=== PATIENT | male | born 1975 | race Caucasian/White ===

== ENCOUNTER 2017-05-12 09:01 | Outpatient (CLI) | payer MEDICARE, MEDICAID ==
[2017-05-12 19:00] LABS: BASOPHILS # (AUTO) 0.1 10^3/uL (0.0-0.1); BASOPHILS % (AUTO) 0.9 %; EOSINOPHILS # (AUTO) 0.1 10^3/uL (0.0-0.7); EOSINOPHILS % (AUTO) 1.8 %; HCT - HEMATOCRIT 48.8 % (42.0-52.0); HGB - HEMOGLOBIN 16.6 g/dL (14.0-18.0); LYMPHOCYTES # (AUTO) 1.7 10^3/uL (1.5-3.5); LYMPHOCYTES % (AUTO) 26.2 %; MEAN CORPUSCULAR HEMOGLOBIN 30.8 pg (27.0-31.0); MEAN CORPUSCULAR VOLUME 90.8 fL (80.0-94.0); MEAN PLATELET VOLUME 8.2 fL (7.4-11.4); MONOCYTES # (AUTO) 0.5 10^3/uL (0.0-1.0); MONOCYTES % (AUTO) 6.8 %; NEUTROPHILS # (AUTO) 4.3 10^3/uL (1.5-6.6); NEUTROPHILS % (AUTO) 64.3 %; NUCLEATED RED BLOOD CELLS AUTO 0.1 /100WBC; RED BLOOD COUNT 5.38 10^6/uL (4.70-6.10); RED CELL DISTRIBUTION WIDTH 12.9 % (12.0-15.0); UNCORRECTED WHITE BLOOD COUNT 6.6 x10^3/uL; WHITE BLOOD COUNT 6.6 x10^3/uL (4.8-10.8)
[2017-05-12 19:14] LABS: ALBUMIN/GLOBULIN RATIO 1.6 (1.0-2.2); BILIRUBIN,TOTAL 0.7 mg/dL (0.2-1.0); BUN - BLOOD UREA NITROGEN 17 mg/dL (6-20); CALCIUM 9.2 mg/dL (8.5-10.3); CARBON DIOXIDE - CO2 28 mmol/L (21-32); CHLORIDE 103 mmol/L (101-111); CHOLESTEROL 262 mg/dL; CREATININE 0.7 mg/dL (0.6-1.2); GFR - MDRD 125 (>89); GLUCOSE 106 mg/dL (70-100); HDL CHOLESTEROL 44 mg/dL; LDL/HDL RATIO 4.3 (<3.6); POTASSIUM 3.9 mmol/L (3.5-5.0); SODIUM 137 mmol/L (135-145); TOTAL PROTEIN 7.6 g/dL (6.7-8.2); TRIGLYCERIDES 135 mg/dL; VLDL CHOLESTEROL 27 mg/dL
== END 2017-05-12 09:02 | disposition home or self-care (01) ==
LOC: LAB.F 09:01
PROVIDERS: ATTEND Physician Assistant Medical
DX: E78.5 Hyperlipidemia, unspecified (principal); Z51.81 Encounter for therapeutic drug level monitoring; E55.9 Vitamin D deficiency, unspecified
CPT/HCPCS: 36415; 80053; 80061; 82306; 84443; 85025

== ENCOUNTER 2017-05-15 11:02 | Outpatient (CLI) | payer MEDICARE, MEDICAID ==
[2017-05-16 10:12] LABS: TEST RESULT REPORT
== END 2017-05-15 11:03 | disposition home or self-care (01) ==
LOC: LAB.F 11:02
PROVIDERS: ATTEND Physician Assistant Medical
DX: Z20.2 Contact with and (suspected) exposure to infections with a predominantly sexual mode of transmission (principal)
CPT/HCPCS: 36415; 81599; 86317; 86803; 87389; 87491; 87591

== ENCOUNTER 2017-07-07 11:24 | Outpatient (CLI) | payer MEDICARE, MEDICAID | END 2017-07-07 11:25 | disposition home or self-care (01) | LOC: SC 11:24 | PROVIDERS: ATTEND Internal Medicine Pulmonary Disease | DX: G47.33 Obstructive sleep apnea (adult) (pediatric) (principal) | CPT/HCPCS: 99203; G0463; 99212 ==

== ENCOUNTER 2017-08-21 22:11 | Outpatient (CLI) | payer MEDICARE, MEDICAID | END 2017-08-21 22:12 | disposition home or self-care (01) | LOC: SC 22:11 | PROVIDERS: ATTEND Internal Medicine Pulmonary Disease | DX: G47.33 Obstructive sleep apnea (adult) (pediatric) (principal) | CPT/HCPCS: 95810 ==

== ENCOUNTER 2017-09-09 08:48 | Outpatient (CLI) | payer MEDICARE, MEDICAID ==
[2017-09-09 11:03] LABS: ALBUMIN 4.4 g/dL (3.2-5.5); ALBUMIN/GLOBULIN RATIO 1.4 (1.0-2.2); ALKALINE PHOSPHATASE 66 IU/L (42-121); ALT ALANINE AMINOTRANSFERASE 56 IU/L (10-60); AST ASPARTATE AMINOTRANSFERASE 33 IU/L (10-42); BILIRUBIN,TOTAL 0.8 mg/dL (0.2-1.0); BUN - BLOOD UREA NITROGEN 20 mg/dL (6-20); CALCIUM 8.9 mg/dL (8.5-10.3); CARBON DIOXIDE - CO2 27 mmol/L (21-32); CHLORIDE 103 mmol/L (101-111); CHOL/HDL RATIO 5.6 (<5.0); CHOLESTEROL 219 mg/dL; CREATININE 0.9 mg/dL (0.6-1.2); GFR - MDRD 93 (>89); GLUCOSE 108 mg/dL (70-100); HDL CHOLESTEROL 39 mg/dL; LDL CHOLESTEROL,CALCULATED 164 mg/dL; LDL/HDL RATIO 4.2 (<3.6); SODIUM 138 mmol/L (135-145); TOTAL PROTEIN 7.5 g/dL (6.7-8.2); VLDL CHOLESTEROL 16 mg/dL
== END 2017-09-09 08:49 | disposition home or self-care (01) ==
LOC: LAB.F 08:48
PROVIDERS: ATTEND Physician Assistant Medical
DX: Z51.81 Encounter for therapeutic drug level monitoring (principal); E78.5 Hyperlipidemia, unspecified; E55.9 Vitamin D deficiency, unspecified
CPT/HCPCS: 36415; 80053; 80061; 82306; 83721

== ENCOUNTER 2017-10-15 09:28 | Outpatient (CLI) | payer MEDICARE, MEDICAID | END 2017-10-15 09:29 | disposition home or self-care (01) | LOC: SC 09:28 | PROVIDERS: ATTEND Nurse Practitioner Family | DX: G47.33 Obstructive sleep apnea (adult) (pediatric) (principal) | CPT/HCPCS: 99214 ==

== ENCOUNTER 2017-12-11 10:06 | Outpatient (CLI) | payer MEDICARE, MEDICAID | END 2017-12-11 10:07 | disposition home or self-care (01) | LOC: SC 10:06 | PROVIDERS: ATTEND Nurse Practitioner Family | DX: G47.33 Obstructive sleep apnea (adult) (pediatric) (principal) | CPT/HCPCS: 99214; G0463; 99212 ==

== ENCOUNTER 2018-03-17 10:39 | Outpatient (CLI) | payer MEDICARE, MEDICAID | END 2018-03-17 10:40 | disposition home or self-care (01) | LOC: SC 10:39 | PROVIDERS: ATTEND Nurse Practitioner Family | DX: G47.33 Obstructive sleep apnea (adult) (pediatric) (principal) | CPT/HCPCS: 99214; G0463; 99212 ==

== ENCOUNTER 2018-04-28 10:40 | Outpatient (CLI) | payer MEDICARE, MEDICAID | END 2018-04-28 10:41 | disposition home or self-care (01) | LOC: SC 10:40 | PROVIDERS: ATTEND Nurse Practitioner Family | DX: G47.33 Obstructive sleep apnea (adult) (pediatric) (principal); G47.00 Insomnia, unspecified | CPT/HCPCS: 99214; G0463; 99212 ==

== ENCOUNTER 2018-06-02 13:39 | Emergency (ER) | payer MEDICARE, MEDICAID ==
--- NOTE | 2018-06-02 16:04 | XRAY Report ---
Reason: pain superior to the patella Procedure Date: 06/02/2018 Accession Number: [id number] / [id number] Procedure: XR - Knee 4 View LT CPT Code: FULL RESULT: EXAM: LEFT KNEE RADIOGRAPHY EXAM DATE: 06/02/2018 03:45 PM. CLINICAL HISTORY: Pain superior to the patella. COMPARISON: None. TECHNIQUE: 4 views. FINDINGS: Bones: Normal. No fractures or bone lesions. Joints: Normal. No effusion. No subluxations. Soft Tissues: Normal. No soft tissue swelling. IMPRESSION: Normal knee radiography. [facility]
[2018-06-02] MEDS ORDERED: DEXAMETHASONE 10 MG/ML VIAL PO STA (16:14)
--- NOTE | 2018-06-02 16:14 | ED Physician Documentation ---
PD HPI LOWER EXT INJURY - Stated complaint Stated Complaint: L KNEE PX - Chief complaint Chief Complaint: Ext Problem - History obtained from History obtained from: Patient - History of Present Illness PD HPI LOW EXT INJURY LOCATION: Left, Knee Type of injury: Other (lifting) Where injury occurred: Home Timing - onset: How many days ago (3) Timing - duration: Days (3) Timing - details: Gradual onset, Still present Improved by: Rest, Immobilization Worsened by: Moving, Palpating Associated symptoms: No: Weakness, Numbness, Tingling, Swelling Similar symptoms before: Has not had sx before Recently seen: Not recently seen - Additional information Additional information: Previous the well 43-year-old male who takes care of 3 children at home has developed some pain in his left patella above the patella and pain with flexion of the knee. He is uncertain of any specific injury to the area and he denies any excessive use of his knees he denies excessive jumping or running. He does state that he helped with a recycling the other day and threw a heavy recycling bin into the truck. Review of Systems Constitutional: denies: Fever Respiratory: denies: Cough GI: denies: Vomiting : denies: Dysuria, Frequency Skin: denies: Rash Musculoskeletal: reports: Extremity pain, Joint pain, Pain with weight bearing. denies: Neck pain, Back pain Neurologic: denies: Generalized weakness, Focal weakness, Numbness PD PAST MEDICAL HISTORY - Past Medical History Musculoskeletal: Fibromyalgia, Chronic back pain Other Past Medical History: pt has spinal cord stimulator for his back pain - Allergies Allergies/Adverse Reactions: Allergies Allergy/AdvReac Type Severity Reaction Status Date / Time No Known Drug Allergies Allergy Verified 06/02/18 13:51 - Social History Does the pt smoke?: No Smoking Status: Never smoker Does the pt drink ETOH?: No Does the pt have substance abuse?: No - Immunizations Immunizations are current?: Yes PD ED PE NORMAL - Vitals Vital signs reviewed: Yes (normal ) - General General: Alert and oriented X 3, No acute distress, Well developed/nourished - HEENT HEENT: Atraumatic, PERRL, EOMI - Respiratory Respiratory: No respiratory distress - Derm Derm: Normal color, Warm and dry, No rash - Extremities Extremities: No deformity, No edema, Other (There is point tenderness to the superior pole of the patella and no swelling or joint effusion. There is no ligamentous laxity and the distal n/v is intact. There is no crepitance to ROM testing. ) - Neuro Neuro: Alert and oriented X 3, top inventory control executive 2-12 intact, No motor deficit, No sensory deficit, Normal speech Eye Opening: Spontaneous Motor: Obeys Commands Verbal: Oriented GCS Score: 15 - Psych Psych: Normal mood, Normal affect Results - Vitals Vitals: Vital Signs - 24 hr 06/02/18 13:46 Temperature 36.2 C L Heart Rate 77 Respiratory 16 Rate Blood Pressure 108/73 O2 Saturation 99 Oxygen O2 Source Room air - Rads (name of study) knee Radiology: Prelim report reviewed (Impression: Normal knee radiography.), EMP read indepedently, See rad report PD MEDICAL DECISION MAKING - ED course Complexity details: reviewed results, re-evaluated patient, considered differential, d/w patient ED course: 43-year-old male with superior patellar knee pain has examination consistent with patellofemoral syndrome and he does not have a good history for this. He is administered dexamethasone 10 mg orally and he is referred back to his primary care doctor for physical therapy. Departure - Departure Disposition: Home, Self Care Clinical Impression: Patellofemoral arthralgia of left knee Condition: Stable Instructions: Patellofemoral Syndrome Follow-Up: Bruno Ahn MD [Primary Care Provider] -
[2018-06-02] MEDS ORDERED: CHERRY SYRUP 10 ML UDC PO ONE (16:24)
[2018-06-02 16:26] VITALS: BP 110/70
== END 2018-06-02 16:26 | disposition home or self-care (01) ==
LOC: ED 13:39
DX: M25.562 Pain in left knee (principal); M79.7 Fibromyalgia
CPT/HCPCS: 73564; 99283; A9270

== ENCOUNTER 2019-07-16 20:32 | Emergency (ER) | payer MEDICARE, MEDICAID ==
[2019-07-16] MEDS ORDERED: KETOROLAC 60 MG/2 ML VIAL IM STA (21:12)
[2019-07-16] MEDS ORDERED: oxyCODONE/ACET 5/325 Prepack 4 PO STA (21:12)
--- NOTE | 2019-07-16 21:14 | ED Physician Documentation ---
PD HPI BACK PAIN - Stated complaint Stated Complaint: BK PX - Chief complaint Chief Complaint: Back Pain - History obtained from History obtained from: Patient (44-year-old gentleman with chronic back pain, spinal stimulator in place, he said it was installed wrong and is planning to see a back surgeon at [facility] to have it fixed. His usual low back pain is much worse over the last 3 days without specific inciting incidents. It radiates down the left leg with a shocklike sensation but he denied weakness, numbness, tingling, saddle anesthesia, or fevers. He usually does not take anything for his back pain other than a muscle relaxer.) Review of Systems Constitutional: denies: Fever, Chills Cardiac: denies: Chest pain / pressure, Palpitations Respiratory: denies: Dyspnea, Cough PD PAST MEDICAL HISTORY - Past Medical History Musculoskeletal: Fibromyalgia, Chronic back pain - Present Medications Home Medications: Ambulatory Orders Medication Instructions Recorded Confirmed Atorvastatin Calcium 10 mg PO DAILY 07/16/19 07/16/19 Citalopram Hydrobromide 20 mg PO DAILY 07/16/19 07/16/19 [Citalopram HBr] Oxycodone HCl/Acetaminophen 1 - 2 each PO Q6H PRN #10 tablet 07/16/19 [Percocet 5-325 mg Tablet] Tizanidine HCl 4 mg PO TID 07/16/19 07/16/19 - Allergies Allergies/Adverse Reactions: Allergies Allergy/AdvReac Type Severity Reaction Status Date / Time No Known Drug Allergies Allergy Verified 07/16/19 20:43 - Social History Does the pt smoke?: No Smoking Status: Never smoker Does the pt drink ETOH?: No Does the pt have substance abuse?: No - Immunizations Immunizations are current?: Yes PD ED PE NORMAL - Vitals Vital signs reviewed: Yes - General General: Alert and oriented X 3, No acute distress - Abdomen Abdomen: Normal bowel sounds, Soft, Non tender - Back Back: No CVA TTP, No spinal TTP - Derm Derm: Normal color, Warm and dry - Extremities Extremities: Other (The patient has equal and normal Achilles and patellar reflexes bilaterally. Normal sensation in all areas of the legs. Patient denies saddle anesthesia. Normal strength in flexion-extension at the ankles, knees, and flexion of the hips.) Results - Vitals Vitals: Vital Signs - 24 hr 07/16/19 20:35 Temperature 36.2 C L Heart Rate 90 Respiratory 16 Rate Blood Pressure 103/66 O2 Saturation 97 Oxygen O2 Source Room air PD MEDICAL DECISION MAKING - ED course ED course: There is no abdominal pain or no tenderness, the exacerbation of his usual symptoms make me think that it is very unlikely to be something like a dissection or AAA. There is no evidence of cauda equina. This patient has seemingly uncomplicated musculoskeletal back pain. The patient has no "red flags." Specifically denies IV drug use, fevers, incontinence, saddle anesthesia. Spinal epidural abscess was considered, given that the patient has no fever, is not diabetic, has no spinal tenderness, does not use IV drugs, and has no bilateral neurologic symptoms, the diagnosis of spinal epidural abscess is considered exceedingly unlikely. Treatment in the emergency department consisted of Toradol 60 mg IM and 4 Percocet to go. Departure - Departure Disposition: Home, Self Care Clinical Impression: Acute exacerbation of chronic low back pain Condition: Good Record reviewed to determine appropriate education?: Yes Instructions: ED Back Care Tips, ED Neck Back Pain General Prescriptions: Oxycodone HCl/Acetaminophen [Percocet 5-325 mg Tablet] 1 - 2 each PO Q6H PRN #10 tablet PRN Reason: pain Comments: Call your doctor to arrange a follow-up appointment, make the next available appointment. In the interim, return anytime if worse or if new symptoms develop. Do not drink or drive while taking narcotic pain medication. Note that many narcotic pain relievers also contain Tylenol/acetaminophen. Please ensure that your total dose of acetaminophen from all sources does not e xceed 3 g (3000 mg) per day. You may get constipated while on this medication. Take a stool softener such as Colace twice a day while you are on it. Also add an oahm-hro-suynceg laxative such as senna or MiraLAX on any day that you do not have a bowel movement. If you received a narcotic pain medication or sedative while in the emergency department, do not drive for the next 24 hours.
[2019-07-16 21:30] VITALS: BP 121/73
== END 2019-07-16 21:30 | disposition home or self-care (01) ==
LOC: ED 20:32
DX: M54.5 Low back pain (principal); G89.29 Other chronic pain
CPT/HCPCS: 96372; 99283; 99284

== ENCOUNTER 2021-02-15 11:00 | Outpatient (CLI) | payer MEDICARE, MEDICAID ==
[2021-02-15 11:48] VITALS: BP 113/72
--- NOTE | 2021-02-15 11:48 | SLEEP CARE CONSULTATION ---
Information from patient questionnaire entered by Jovita Schwarz. I have reviewed and concur with the information entered by Jovita Schwarz. This document represents the service I personally performed and the decisions made by , Susy Galvez ARNP. History of Present Illness Service Date and Time: 02/15/2021 1100 Previous diagnosis: Mild, Obstructive Sleep Apnea-Hypopnea Syndrome AHI: 14.6 (in 2018) Reason for follow up: annual (last seen 04/2018) Equipment type: CPAP Equipment obtained from: [facility] [place] (have stopped getting supplies) Mask style: Full face Backup mask available: No (needs supplies) Last cushion change: Apr 2020 Prior sleep studies: Yes Year and Where: 2017 - Merged with [facility]; 2011 - in [place] Type of Sleep Study: Polysomnography HPI additional information: JERROD [place] was diagnosed to have mild, AHI 14.6, obstructive sleep apnea- hypopnea syndrome and returned today for CPAP therapy annual follow-up. CPAP Compliance Data - Data Reviewed with Patient Average duration of nightly device use: 7 hours 4 minutes Compliance rate %: 9 (cannot use due to not having supplies) Current pressure setting (cmH2O): 7 Average residual AHI: 3.1 Compliance data discussion: Patient has not been able to use his device because he has not supplies. He last used his device in June 2020. His current information on compliance if for the last year. Subjective Patient concerns: reports: other (parts). denies: aerophagia, mask discomfort, air blowing in eyes, mask leak noise, condensation in mask/hose, nasal congestion, dry mouth, nose, throat, epistaxis Observed to snore while using device: No Current pressure setting perceived as: comfortable On therapy, patient: reports: sleeping better, awakening more refreshed, being more awake and alert during the day, more rested overall. denies: drowsiness while driving Initial Shannon Sleepiness Scale score: 6 (in 2018) Current Shannon Sleepiness Scale score: 6 Allergies and Home Medications Home medication list reviewed: Yes (no changes) Review of Systems Review of systems same as previous: Yes (no changes) Physical Exam Blood Pressure: 113/72 Cuff size: wrist Heart Rate: 75 O2 Saturation: 98 Height: 5 ft 11 in Weight: 195 lb Body Mass Index: 27.1 BMI Classification: Overweight Impression and Plan 1. Obstructive Sleep Apnea-Hypopnea Syndrome, mild. He has not been able to use his machine because he has no supplies. He wants to resume using his CPAP. On CPAP therapy, the patient has better sleep quality and is more rested overall. He was last at [facility] who no longer deal in CPAP supplies. Patient was informed that he can use another DME company for his supplies. I will have my retail event coordinator inform of DME options. A DWO prescription will then be made. Patient advised to contact this office if further supply problems. I will have him follow up in office to check compliance in 1-2 months once he has supplies to be able to use his device. He voiced understanding. Patient's apnea severity and rationale for treatment to reduce apnea, improve sleep quality and reduce cardiovascular and cerebrovascular events was reviewed. I also reviewed the benefit of consistent device use of CPAP for migraines. Patient was encouraged to lose weight for their overall health and to reduce apneas. * Continue CPAP pressure at 7 cmH2O * Transfer DME * Update supplies * Notify me if snoring with mask or feeling that the pressure is too much or too little * Attempt to lose weight * Call this office if any problems using CPAP * Return for follow up in 1-2 months, or sooner if concerns arise Counseling Topics: Spare mask, Weight loss health impact Visit Type: In Office Time Spent with Patient (minutes): 20 Provider Statement: I spent 100% of the Face to Face Visit with the patient with greater than 50% spent counseling the patient and coordination of care.
== END 2021-02-15 11:01 | disposition home or self-care (01) ==
LOC: SC 11:00
PROVIDERS: ATTEND Nurse Practitioner Family
DX: G47.33 Obstructive sleep apnea (adult) (pediatric) (principal)
CPT/HCPCS: 99213; G0463; 99212

== ENCOUNTER 2022-03-06 08:00 | Outpatient (CLI) | payer MEDICARE, MEDICAID ==
--- NOTE | 2022-03-06 13:40 | XRAY Report ---
PROCEDURE: Chest 2 View X-Ray INDICATIONS: ACUTE COUGH TECHNIQUE: 2 view(s) of the chest. COMPARISON: None. FINDINGS: Surgical changes and devices: Epidural stimulator leads impression from the upper lumbar spine direc yoshi cranially. Lungs and pleura: No pleural effusions or pneumothorax. Lungs are clear. Mediastinum: Mediastinal contours are normal. Heart size is normal. Bones and chest wall: No suspicious bony abnormalities. Soft tissues appear unremarkable. IMPRESSION: No acute cardiopulmonary disease. Reviewed by: Breonna Francois MD on 03/06/2022 1:39 PM PDT Approved by: Breonna Francois MD on 03/06/2022 1:39 PM PDT Station ID: [id number]
== END 2022-03-06 08:01 | disposition home or self-care (01) ==
LOC: DI.S 08:00
PROVIDERS: ATTEND Physician Assistant
DX: R05.1 Acute cough (principal)

== ENCOUNTER 2022-09-10 11:17 | Outpatient (CLI) | payer MEDICARE, MEDICAID ==
[2022-09-10 11:34] LABS: BASOPHILS # (AUTO) 0.1 10^3/uL (0.0-0.1); BASOPHILS % (AUTO) 0.8 %; EOSINOPHILS # (AUTO) 0.3 10^3/uL (0.0-0.7); EOSINOPHILS % (AUTO) 2.5 %; HCT - HEMATOCRIT 48.6 % (42.0-52.0); HGB - HEMOGLOBIN 17.2 g/dL (14.0-18.0); LYMPHOCYTES # (AUTO) 1.8 10^3/uL (1.5-3.5); LYMPHOCYTES % (AUTO) 17.8 %; MEAN CORPUSCULAR HEMOGLOBIN 31.6 pg (27.0-31.0); MEAN CORPUSCULAR HGB CONC 35.4 g/dL (32.0-36.0); MEAN CORPUSCULAR VOLUME 89.2 fL (80.0-94.0); MEAN PLATELET VOLUME 9.8 fL (7.4-11.4); MONOCYTES # (AUTO) 0.5 10^3/uL (0.0-1.0); MONOCYTES % (AUTO) 4.6 %; NEUTROPHILS # (AUTO) 7.6 10^3/uL (1.5-6.6); PLT - PLATELET COUNT 252 10^3/uL (130-450); RED BLOOD COUNT 5.45 10^6/uL (4.70-6.10); RED CELL DISTRIBUTION WIDTH 11.9 % (12.0-15.0); WHITE BLOOD COUNT 10.3 x10^3/uL (4.8-10.8)
[2022-09-10 11:49] LABS: ALBUMIN 4.9 g/dL (3.2-5.5); ALBUMIN/GLOBULIN RATIO 1.7 (1.0-2.2); ALKALINE PHOSPHATASE 65 IU/L (42-121); ALT ALANINE AMINOTRANSFERASE 31 IU/L (10-60); AST ASPARTATE AMINOTRANSFERASE 20 IU/L (10-42); BILIRUBIN,TOTAL 1.5 mg/dL (0.2-1.0); BUN - BLOOD UREA NITROGEN 24 mg/dL (6-20); CALCIUM 9.3 mg/dL (8.5-10.3); CARBON DIOXIDE - CO2 25 mmol/L (21-32); CHLORIDE 104 mmol/L (101-111); CHOL/HDL RATIO 6.4 (<5.0); CHOLESTEROL 290 mg/dL; CREATININE 0.8 mg/dL (0.6-1.2); GFR - MDRD 105 (>89); GLUCOSE 84 mg/dL (70-100); HDL CHOLESTEROL 45 mg/dL; LDL CHOLESTEROL,CALCULATED 225 mg/dL; POTASSIUM 3.7 mmol/L (3.5-5.0); SODIUM 142 mmol/L (135-145); TOTAL PROTEIN 7.8 g/dL (6.7-8.2); TRIGLYCERIDES 98 mg/dL; VLDL CHOLESTEROL 20 mg/dL
[2022-09-11 07:10] LABS: HCV AB Non Reactive (Non Reactive); HIV SCREEN 4TH GENERATION Non Reactive (Non Reactive)
== END 2022-09-10 11:18 | disposition home or self-care (01) ==
LOC: LAB 11:17
PROVIDERS: ATTEND Hospitalist
DX: N50.811 Right testicular pain (principal); N50.812 Left testicular pain; Z11.59 Encounter for screening for other viral diseases; Z11.4 Encounter for screening for human immunodeficiency virus [HIV]; E78.49 Other hyperlipidemia
CPT/HCPCS: 36415; 80053; 80061; 85025; 86803; G0475; 83721; 87389